=== PATIENT | female | born 1985 | race Two or more races ===

== ENCOUNTER 2017-05-21 17:36 | Inpatient (IN) | payer OTHER ==
[2017-05-21 18:02] VITALS: BMI 32.8
[2017-05-21] MEDS ORDERED: Nalbuphine 20 mg/ml Inj (1 ml) IVP PRN (18:15)
[2017-05-21 18:29] LABS: BASO % 0.2 % (0.0-2.0); EOS # 0.2 K/uL (0.0-0.7); EOS % 1.5 % (0.0-4.0); HEMOGLOBIN 11.7 g/dL (11.0-16.0); LYMPH # 2.6 K/uL (1.0-4.3); MEAN CELL VOLUME 88.8 fL (81.0-99.0); MEAN CORPUSCULAR HEMOGLOBIN 30.9 pg (27.0-31.0); MEAN CORPUSCULAR HGB CONC 34.8 g/dL (33.0-37.0); MONO # 0.7 K/uL (0.0-0.8); MONO % 6.7 % (0.0-10.0); NEUT % 66.6 % (50.0-75.0); RBC 3.78 Mil/uL (3.80-5.20); RED CELL DISTRIBUTION WIDTH 14.1 % (11.5-14.5); WHITE BLOOD COUNT 10.5 K/uL (4.8-10.8)
[2017-05-21 18:36] LABS: SQUAMOUS EPITHIAL 1 /hpf (0-5); URINE BACTERIA MANY (<OCC); URINE BILIRUBIN NEGATIVE (NEGATIVE); URINE BLOOD NEGATIVE (NEGATIVE); URINE CLARITY Clear (Clear); URINE COLOR Colorless (YELLOW); URINE GLUCOSE (UA) NORMAL (Normal); URINE LEUKOCYTE ESTERASE NEG Leu/uL (Negative); URINE NITRATE NEGATIVE (NEGATIVE); URINE PROTEIN NEGATIVE (NEGATIVE); URINE UROBILINOGEN NORMAL mg/dL (0.2-1.0)
[2017-05-21 18:42] LABS: ALB/GLOB RATIO 1.1 (1.0-2.1); ALT/SGPT 17 U/L (9-52); AST/SGOT 18 U/L (14-36); BLOOD UREA NITROGEN 6 mg/dL (7-17); CALCIUM 8.9 mg/dl (8.6-10.4); GFR AFRICAN-AMERICAN > 60; GFR NON-AFRICAN AMERICAN > 60
--- NOTE | 2017-05-21 18:56 | OBADHP ---
Datetime: 05/21/2017 18:48 Admit Comment, IP Provider: at 39.1weeks came with c/o ctxs and dec movements since the m orning,no vb, lof. obhx primi pmh den med pnv all pnc psh den soch den ve closed/th/-3 a/p at 39.1weeks dec fm/abdominal pain/r/o macrosomia admit to l_d npo/ivf cont shawn and efm pain management cervidil clindamycin anticipate Pelvic Type - PN: Adequate Extremities - PN: Normal Abdomen - PN: Normal Back - PN: Normal Breast - PN: Not Done Lungs - PN: Normal Heart - PN: Normal Thyroid - PN: Not Done Neurologic - PN: Normal HEENT - PN: Normal General - PN: Normal FHR - Baseline A Provider: 130 Contraction Comments Provider: irrg Comments, ACOG Physical Exam: gravid,non tender ext no edema,no calf ten left bartholian cyst IP Hx Assessment: The History has been Reviewed and is Current Vital Signs Provider: Reviewed; Within Normal Limits IP Chief Complaint: Uterine contractions; Decreased movement NICHD Variability Prov Fetus A: Moderate 6-25bpm NICHD Accel Fetus A IP Provider: 15X15 FHR Category Provider Fetus A: Category I NICHD Decel Fetus A IP Provider: None Dilatation, Provider: 0 Effacement, Provider: 0 Station, Provider: -3 Genitourinary Exam: Abnormal DTRs - PN: Normal EGA AdmitDate IP: 39.1 IP Adm Impression: Term, intrauterine ; No Active Labor IP Admit Plan: Admit to unit; Initiate labor induction protocol
--- NOTE | 2017-05-21 19:18 | OBPN ---
Datetime: 05/21/2017 19:11 IP Procedures: Sterile Vag Exam IP Progress Plan: Cervical Ripening Contraction Comments Provider: none FHR - Baseline A Provider: 140 IP Progress Note Comment: pt was examined at bed energy scheduler ve closed cervidil r/a/b discussed Vital Signs Provider: Reviewed; Within Normal Limits NICHD Accel Fetus A IP Provider: 15X15 FHR Category Provider Fetus A: Category I NICHD Variability Prov Fetus A: Moderate 6-25bpm Dilatation, Provider: 0 Effacement, Provider: 0 Station, Provider: -3 Datetime: 05/21/2017 18:48 NICHD Decel Fetus A IP Provider: None
[2017-05-21] MEDS: Lactated Ringer's 1,000 ML IV SCH (19:33)
[2017-05-22] MEDS: Lactated Ringer's 1,000 ML IV SCH (02:00)
[2017-05-22] MEDS ORDERED: Clindamycin 600 MG in Sodium Chloride 0.9% 100 ML IV SCH (04:00)
[2017-05-22] MEDS ORDERED: Penicillin G Potassium 5 MU in Dextrose 5% In Water 50 ML IV ONE (04:00)
[2017-05-22] MEDS: Clindamycin 600mg/50ml NS 600 MG/50 ML BAG IVPB SCH ×3 (04:00→20:14)
[2017-05-22] MEDS ORDERED: Clindamycin 600mg/50ml NS 600 MG/50 ML BAG IVPB ONE ×2 (04:01→12:01)
--- NOTE | 2017-05-22 07:26 | OBPN ---
Datetime: 05/22/2017 07:11 IP Progress Impression: Normal progression of labor IP Progress Plan: Continue present management Membranes, Provider: Intact FHR - Baseline A Provider: 130 Gestation - Est Wks by US: 39.2 Presentation-Admit: Vertex IP Progress Note Comment: pt sen and examiend reports craping pain, toleraable, dneies any lof, vb, +Fm VSS VE: 05/13/-3 VTX intact EFM: Vicky I TOCO: q 2-3 min A/P P0 @ 39.2 wks GA IOL for oligohramnios -s/p cervidil -cont current managmnt -pitocn -pain managment prn Vital Signs Provider: Reviewed; Within Normal Limits NICHD Accel Fetus A IP Provider: 15X15 NICHD Variability Prov Fetus A: Moderate 6-25bpm Dilatation, Provider: 1 Effacement, Provider: 30 Station, Provider: -3 NICHD Decel Fetus A IP Provider: None
[2017-05-22] MEDS ORDERED: Oxytocin 30 UNIT 30 UNITS/500 ML BAG IV SCH (07:30)
[2017-05-22] MEDS ORDERED: Penicillin G Potassium 2.5 MU in Dextrose 5% In Water 50 ML IV SCH (07:30)
[2017-05-22] MEDS ORDERED: Oxytocin 30 UNIT 30 UNITS/500 ML BAG IV ONE (08:49)
[2017-05-22] MEDS ORDERED: Fentanyl/Bupivacaine HCl 250 ML EPI ONE (13:57)
[2017-05-22] MEDS ORDERED: Lidocaine 2% Inj (20ml) ONE (14:16)
--- NOTE | 2017-05-22 17:24 | OBPN ---
Datetime: 05/22/2017 17:20 IP Progress Impression: Normal progression of labor IP Progress Plan: Continue present management Membranes, Provider: Intact Contraction Comments Provider: q 2-3 min FHR - Baseline A Provider: 125 Gestation - Est Wks by US: 39.2 Presentation-Admit: Vertex IP Progress Note Comment: pt seen and examined s/p epidural VSS V:E /-3 vtx intact a/p @ 39.2 wks GA iol for olighohydrations cont current mangment Vital Signs Provider: Reviewed; Within Normal Limits NICHD Variability Prov Fetus A: Moderate 6-25bpm Dilatation, Provider: 1 Effacement, Provider: 50 Station, Provider: -3 NICHD Decel Fetus A IP Provider: None
--- NOTE | 2017-05-22 19:18 | OBPN ---
Datetime: 05/22/2017 19:14 IP Progress Plan: Continue present management IP Progress Note Comment: pt seen and examiend reporting soem pressure, dneis any lof, vb, ctx, +Fm vss ve; /-3 vtx intact a/p @ 39+ wks IOL fo roligohyration -cont pitoicn as per fprotoicn -fonseca balloon discussed
[2017-05-22] MEDS ORDERED: Sodium Citrate/Citric Acid 15 ml Sol PO ONE (19:33)
[2017-05-22] MEDS ORDERED: ceFAZolin 2 GM in Sodium Chloride 0.9% 100 ML IVPB ONE (19:33)
[2017-05-22] MEDS ORDERED: Phenylephrine 10 mg/ml Inj ONE (19:57)
[2017-05-22] MEDS ORDERED: Morphine 1 mg/ml preservative-free Inj(Duramorph) ONE (19:57)
[2017-05-22] MEDS ORDERED: Oxytocin 20 units in LR 2,000 ML IV ONE (20:01)
[2017-05-22] MEDS ORDERED: Gentamicin 80 mg/2mL Inj. ONE (20:34)
--- NOTE | 2017-05-22 21:15 | OBPN ---
Datetime: 05/22/2017 21:12 IP Progress Note Comment: pt seen adn examiend pt with no progress, (nursing error, pt unachage not 3cm) pt counseld on proceedign with fonseca balloon vs cytotec for continued inductin of labor vs prlcat r/ba//i of primary cxs not limtied to bleedign infection dcw patietn pt with failure to progress conset obatined
--- NOTE | 2017-05-22 21:17 | OBDS ---
DELIVERY PERSONNEL Delivery Doctor: Villa, R. 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 prsetn for deliveyr 8bls 5o unces no cmplicat LABOR SUMMARY EDC: 05/27/2017 00:00 LABOR INFORMATION Cervical Ripening Agents: Cervidil (Annotations: removed by DR VILLA) Group B Beta Strep: Positive STAGES OF LABOR Stage 3 hrs: 0 Stage 3 min: 1 BABY A INFORMATION Delivery Date/Time: 05/22/2017 20:34 Method of Delivery: Born in Route : No : N/A Forceps: N/A Vacuum Extraction: N/A Shoulder Dystocia : No SHOULDER DYSTOCIA BABY A Infant Delivery Date/Time: 05/22/2017 20:34 PRESENTATION/POSITION BABY A Presentation: Cephalic Cephalic Presentation: Vertex Vertex Position: Left Occipital Anterior Breech Presentation: N/A PLACENTA INFORMATION BABY A Placenta Delivery Time : 05/22/2017 20:35 Placenta Method of Delivery: Manual Removal Placenta Status: Delivered SCORES BABY A Heart Rate 1 min: >100 bpm Resp Effort 1 min: Good Cry Reflex Irritability 1 min: Cough or Sneeze or Pulls Away Muscle Tone 1 min: Active Motion Color 1 min: Body [place], Extremities Blue SCORE 1 MIN: 9 Heart Rate 5 min: >100 bpm Resp Effort 5 min: Good Cry Reflex Irritability 5 min: Cough or Sneeze or Pulls Away Muscle Tone 5 min: Active Motion Color 5 min: Body [place], Extremities Blue SCORE 5 MIN: 9 INFORMATION BABY A Gestational Age at Delivery: 39.2 Gestational Status: Term Infant Outcome : Liveborn Condition : Stable Infant Sex: Female IDENTIFICATION/MEDS BABY A ID Band Number: [id number] ID Band Location: Left Leg; Left Arm Sensor Applied: Yes Sensor Number: [id number] Sensor Location : Cord Clamp Vitamin K Given : Not Given Erythromycin Given: Not Given WEIGHT/LENGTH BABY A Birthweight (gms): 3785 Weight (lb): 8 Infant Weight (oz): 5 Length Inches: 19.00 Infant Length cms: 48.3 CORD INFORMATION BABY A No. Cord Vessels: 3 Nuchal Cord : N/A Cord Blood Taken: Yes Suction: Mouth; Nose
--- NOTE | 2017-05-22 21:17 | PCM.SURG1 ---
Surgeon's Initial Post Op Note - Surgeon's Notes Surgeon: Robyn Scott< Grocery Store Manager: Reynaldo Matson md Type of Anesthesia: Spinal, Other Pre-Operative Diagnosis: Failure to progress Operative Findings: life female , cephalica presentat, aprsg 9,9 weight of 8lbs5 unces. nroam appeairng uteurs, tubes and ovaries b/l. pediatricin presnet for deliveyr. dr Reynaldo Matson was surigcla assistan and was present for entire case adn esseential in gainign enry, recatin, exposure, holding bladder blade, deilveryign ifnat, closing all layers adn obtainmalissa hemostais. Post-Operative Diagnosis: same as above Operation Performed: Primary low transverse cesearen section Specimen/Specimens Removed: placenta Estimated Blood Loss: EBL {In ML}: 800 Blood Products Given: N/A Drains Used: No Drains Post-Op Condition: Good Date of Surgery/Procedure: 05/22/17 Time of Surgery/Procedure: 21:00
[2017-05-22] MEDS: Simethicone 80 mg Chewtab PO SCH (23:27)
[2017-05-23] MEDS: Clindamycin 600mg/50ml NS 600 MG/50 ML BAG IVPB SCH (03:21)
--- NOTE | 2017-05-23 07:02 | OP ---
PROCEDURE DATE: 05/22/2017 SURGEON: Dr. Robyn Scott. BATCHER OPERATOR: Dr. Reynaldo Matson. TYPE OF ANESTHESIA: Epidural spinal. PREOPERATIVE DIAGNOSIS: Failure to progress. POSTOPERATIVE DIAGNOSIS: Failure to progress. OPERATIVE FINDINGS: Live male infant, cephalic presentation, compound presentation, Apgars 9 and 9, weight of 8 pounds 5 ounces. Normal-appearing uterus, tubes, and ovaries bilaterally. Camp Tender was present for the delivery. Dr. Reynaldo Matson, surgical dressing maker, was present for the entire case and assisted in gaining entry, retraction, exposure, holding the bladder blade, helping to deliver the infant, closing all layers, and obtaining hemostasis. OPERATION PERFORMED: Primary low transverse section. SPECIMEN REMOVED: Placenta. ESTIMATED BLOOD LOSS: 800 mL BLOOD PRODUCTS: None COMPLICATIONS: None. DESCRIPTION OF PROCEDURE: The patient was taken to the operating room where she was given general anesthesia. Once it was found to be adequate, she was placed on the operating table in dorsal supine position. The patient was then prepped and draped in the usual sterile fashion. A time-out was confirmed correct patient and correct procedure. The patient was given preoperative prophylactic antibiotics. A Pfannenstiel skin incision was made with a scalpel and carried down to the underlying fascia with a Bovie. The fascia was incised in the midline. The incision was extended laterally with the Bovie. The inferior aspect of the fascial incision was grasped with Fili clamps and the underlying rectus muscles resected off bluntly Isaacs scissors. The patient was turned to superior aspect which in a similar fashion was grasped with Fili clamps and underlying rectus muscle resected off bluntly using Isaacs scissors. The rectus muscle was then bluntly in the midline. The peritoneum was identified and entered in the clear space. The incision was extended laterally and superiorly until there was good visualization of the bladder. The lower end of the Bonita was then reinserted. The lower uterine segment was incised in a transverse fashion. The lower uterine segment was extended laterally bluntly. The amniotic fluid membranes were then ruptured. Lower end of Rhodes was then reinserted. Infant's head was delivered atraumatically followed by delivery of the shoulders, followed by delivery of body with compact presentation of hands. Both oral and nasal passages of the baby were bulb suctioned. The umbilical cord was clamped and cut. Baby was handed off to the awaiting payloader operator. Cord blood and cord gases were collected and sent x2. The placenta was then delivered manually. The uterus was exteriorized and cleared of all clots and debris. The uterine incision was repaired with 0-Vicryl in a running continuous locked fashion. The second layer of the same suture was used to close the uterus in a running imbricating manner. The bladder flap was reapproximated close with 2-0 Prolene in a running continuous fashion. There was good hemostasis at the uterine incision site. The pericolic gutters were cleared of all clots and debris. The peritoneum was reapproximated close with 2-0 chromic in a running continuous fashion. The fascia was reapproximated with 2-0 Vicryl in a running cutaneous fashion. The subcutaneous space was closed with 2-0 plain in interrupted manner and skin was reapproximated and closed with 4-0 Monocryl in a running subcuticular fashion. At the end of the procedure, all needles, sponge, and instrument counts were noted to be correct x2. The patient tolerated the procedure well and was transferred to the recovery room in stable. Robyn Scott MD
--- NOTE | 2017-05-23 07:03 | OBPPN ---
Datetime: 05/23/2017 07:01 PP Pain Prov: Within normal limits PP Nausea Prov: Denies PP Flatus Prov: No PP BM Prov: No PP Breasts Prov: Normal PP Heart Prov: Normal PP Lungs Prov: Normal PP Abdomen/Uterus Prov: Normal PP Lochia Prov: Normal PP Vulva/Perineum Prov: Normal PP CVA Tenderness Prov: Normal PP Extremities Prov: Normal PP C/S Incision Prov: Normal PP Progress Prov: Normal PP Comments Phys Exam Prov: gen nad addd o x3 resp ctab/l cvs rrr, +S1/S2 Abd; soft, appropratley ttp near incsion c/d/i no guaridng no rebuound tendnere no rigity +BS no uterien tendnere ve; moderlate lochia, non coul smelling ext negatiev homans sign no calf tnedners PP Impression Prov: Normal progression PP Plan Prov: Continue present management PP Progress Note Prov: pt see and exameind reports pain tolerateb eith meds. not yest ambating to be d, no ptassing faluts, toeriagn liuqidi diet, dneis any fver, hcilsl, cp, sob vss pse see aove a/p s/p pltcs pod #1 pain mantne am labs advance diet ast torlared encourage ambiton/ brast feeding incesntive psriooen/ abodminal binder Vital Signs Provider PP: Reviewed; Within Normal Limits
[2017-05-23 08:02] LABS: BASO % 0.3 % (0.0-2.0); EOS # 0.1 K/uL (0.0-0.7); EOS % 0.5 % (0.0-4.0); HEMOGLOBIN 10.3 g/dL (11.0-16.0); LYMPH # 1.5 K/uL (1.0-4.3); LYMPH % 12.8 % (20.0-40.0); MEAN CELL VOLUME 88.7 fL (81.0-99.0); MEAN CORPUSCULAR HEMOGLOBIN 31.6 pg (27.0-31.0); MEAN CORPUSCULAR HGB CONC 35.6 g/dL (33.0-37.0); MEAN PLATELET VOLUME 9.1 fL (7.2-11.7); MONO # 0.9 K/uL (0.0-0.8); MONO % 7.2 % (0.0-10.0); NEUT # 9.6 K/uL (1.8-7.0); NEUT % 79.2 % (50.0-75.0); RBC 3.28 Mil/uL (3.80-5.20); RED CELL DISTRIBUTION WIDTH 13.9 % (11.5-14.5); WHITE BLOOD COUNT 12.1 K/uL (4.8-10.8)
[2017-05-23 08:54] LABS: ALBUMIN 2.4 g/dL (3.5-5.0); ALT/SGPT 27 U/L (9-52); AST/SGOT 25 U/L (14-36); BLOOD UREA NITROGEN 6 mg/dL (7-17); CALCIUM 7.8 mg/dl (8.6-10.4); GFR AFRICAN-AMERICAN > 60; GFR NON-AFRICAN AMERICAN > 60
[2017-05-23] MEDS: Oxycodone/Acetaminophen 5/325 mg Tab PO PRN ×3 (10:29→17:13)
[2017-05-23] MEDS: Simethicone 80 mg Chewtab PO SCH ×4 (10:29→21:56)
[2017-05-23] MEDS ORDERED: Bisacodyl 5mg EC Tab PO ONE (20:20)
[2017-05-24] MEDS: Oxycodone/Acetaminophen 5/325 mg Tab PO PRN (00:04)
[2017-05-24] MEDS: Simethicone 80 mg Chewtab PO SCH ×3 (09:11→17:01)
[2017-05-24 20:09] VITALS: PULSE 80
[2017-05-24] MEDS: Lactated Ringer's 1,000 ML IV SCH (20:10)
[2017-05-25] MEDS: Simethicone 80 mg Chewtab PO SCH ×2 (00:09→09:12)
[2017-05-25 08:02] VITALS: BP 115/77; RESP 18
[2017-05-25 15:43] VITALS: TEMP 97.8; O2SAT 100
--- NOTE | 2017-05-26 09:48 | OBPPN ---
Datetime: 05/24/2017 18:20 PP Pain Prov: Within normal limits PP Nausea Prov: Denies PP Flatus Prov: Yes PP Breasts Prov: Normal PP Heart Prov: Normal PP Lungs Prov: Normal PP Abdomen/Uterus Prov: Normal PP Lochia Prov: Normal PP Vulva/Perineum Prov: Normal PP CVA Tenderness Prov: Normal PP Extremities Prov: Normal PP Comments Phys Exam Prov: Abd: Soft, NT, BS- present UT- Firm, NT Incision: Clean and dry PP Impression Prov: Normal progression PP Plan Prov: Continue present management PP Progress Note Prov: S/P Repeat Section, POD #2 Clinically Stable. Plan: Continue care, Encourage ambulation Vital Signs Provider PP: Reviewed
== END 2017-05-25 11:43 | disposition home or self-care (01) | DRG 766 ==
LOC: C.EROB 17:36 → C.4D 18:02 → UNDOADMIN 18:06 → C.4M 05-22 23:15
PROVIDERS: ADMIT Obstetrics & Gynecology; ATTEND Obstetrics & Gynecology
PROC: 10D00Z1 Extraction of Products of Conception, Low, Open Approach (ICD-10-PCS; principal; 2017-05-22)
PROC: 3E0P7VZ Introduction of Hormone into Female Reproductive, Via Natural or Artificial Opening (ICD-10-PCS; 2017-05-22)
DX: O36.8130 Decreased fetal movements, third trimester, not applicable or unspecified (principal); O32.6XX0 Maternal care for compound presentation, not applicable or unspecified; O99.824 Streptococcus B carrier state complicating childbirth; O62.0 Primary inadequate contractions; Z3A.39 39 weeks gestation of pregnancy; Z37.0 Single live birth

== ENCOUNTER 2018-02-05 06:53 | Day surgery (SDC) | payer OTHER ==
[2018-02-02 12:18] VITALS: BMI 29.0
[2018-02-05 08:33] VITALS: O2SAT 100
[2018-02-05] MEDS ORDERED: HYDROmorphone 0.5 mg/0.5 ml ISec IVP PRN (09:47)
[2018-02-05] MEDS ORDERED: Lidocaine Hydrochloride 10 ML INJ ONE (09:50)
[2018-02-05] MEDS ORDERED: ceFAZolin IV 1 gm in Dextrose 1 GM/50 ML BAG IVPB ONE (09:55)
[2018-02-05] MEDS ORDERED: Propofol 10 mg/ml Inj (20 ML) ONE (09:58)
[2018-02-05] MEDS ORDERED: Clindamycin 2% Vaginal Cream(40 gm) ONE (10:34)
[2018-02-05] MEDS ORDERED: Lactated Ringer's 1,000 ML IV ONE (11:25)
[2018-02-05 12:35] VITALS: BP 127/80; PULSE 84; RESP 18; TEMP 98
--- NOTE | 2018-02-05 19:45 | OP ---
PROCEDURE DATE: 02/05/2018 PREOPERATIVE DIAGNOSES: Recurrent Bartholin cyst, failed Word catheter placement and incision and drainage multiple times. POSTOPERATIVE DIAGNOSES: Recurrent Bartholin cyst, failed Word catheter placement and incision and drainage multiple times. PROCEDURE PERFORMED: Bartholin cyst incision and drainage with marsupialization. TYPE OF ANESTHESIA: General LMA. ESTIMATED BLOOD LOSS: 10 mL. COMPLICATIONS: None. OPERATIVE FINDINGS: Enlarged 6-cm Bartholin at the 8 'o clock position on the right side, fluids drained and cultures sent off. DESCRIPTION OF PROCEDURE: The patient was taken to the operating where she was given general anesthesia. Once found to be adequate, she was placed on the operating table in the dorsal supine position with legs supported using stirrups. The patient was then prepped and draped in the usual sterile fashion. A time-out confirmed correct patient and correct procedure. Carter catheter was inserted into the urethra to drain the bladder. Following this, after the administration of the prep, an elliptical marking was made was made with a marking pen. The area was infiltrated with local anesthetic lidocaine. Following this, a skin incision was made with #15 blade scalpel. Following this, the mucosa was incised up to the layer of the Bartholin cyst and was retracted and removed until the Bartholin had started to drain. Cultures were obtained. The area was completely drained and irrigated thoroughly, the cyst had been removed. Following that, the mucosa had been reapproximated with 3-0 Vicryl in a running continuous fashion. The was then closed. There was good hemostasis noted. At the end of the procedure, all needle, sponge and instrument counts were noted to be correct x2. The patient tolerated the procedure well and was transferred to the recovery room in stable condition. Robyn Scott MD
== END 2018-02-05 13:13 | disposition home or self-care (01) ==
LOC: C.SDS 06:53
PROVIDERS: ATTEND Obstetrics & Gynecology
DX: N75.0 Cyst of Bartholin's gland (principal)
CPT/HCPCS: 56420; 56440; 87070; 88304; J0690; J1170; J1885; J2405; J2704; J3010; J7120